=== PATIENT | male | born 1975 | race African-American/Black ===

== ENCOUNTER 2018-11-29 07:14 | Emergency (ER) | payer MEDICARE ==
[~2018-11-29] VITALS: Ht 182.9 cm; Wt 114.0 kg
[2018-11-29 07:19] VITALS: BP 143/104
[2018-11-29] MEDS ORDERED: LOSA25TA26 PO (07:19)
[2018-11-29] MEDS ORDERED: SODIUM CHLORIDE 0.9% 1,000 ML IV ONE (08:15)
== END 2018-11-29 08:38 | disposition left against medical advice (07) ==
LOC: ER 07:14
DX: R42 Dizziness and giddiness (principal); R11.2 Nausea with vomiting, unspecified; R55 Syncope and collapse; I10 Essential (primary) hypertension
CPT/HCPCS: 93005; 99283; J7030